=== PATIENT | female | born 1990 | race Caucasian/White ===

== ENCOUNTER → 2018-04-16 | Outpatient (CLI) | payer BC | LOC: LAB 10:24 | PROVIDERS: ATTEND Obstetrics & Gynecology | DX: N97.0 Female infertility associated with anovulation (principal) | CPT/HCPCS: 36415; 84144 ==

== ENCOUNTER 2018-08-26 10:18 | Outpatient (CLI) | payer BC ==
[~2018-08-26] VITALS: Ht 152.4 cm; Wt 72.1 kg
[2018-08-26 10:35] VITALS: BP 127/82
[2018-08-26 10:46] LABS: BILIRUBIN,URINE NEGATIVE (NEGATIVE); CLARITY,URINE CLEAR; COLOR,URINE YELLOW; GLUCOSE, URINE (UA) NEGATIVE (NEGATIVE); KETONES,URINE NEGATIVE (NEGATIVE); LEUKOCYTE ESTERASE ,URINE NEGATIVE (NEGATIVE); NITRITE,URINE NEGATIVE (NEGATIVE); PH,URINE 7 (5-9); PROTEIN,URINE NEGATIVE (NEGATIVE); UROBILINOGEN,URINE NORMAL (NORMAL)
[2018-08-26 10:58] LABS: BACTERIA,URINE NEGATIVE /HPF; SQUAMOUS EPITHELIAL CELL,UR 0-2 /HPF
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
[2018-08-26] MEDS ORDERED: PNV11TAB5 PO (13:44)
[2018-08-26] MEDS ORDERED: DEXL30CA2 PO (13:46)
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
== END 2018-08-26 13:52 | disposition home or self-care (01) ==
LOC: WSo 10:18 → LDRP 10:19 → WSo 13:52
PROVIDERS: ATTEND Obstetrics & Gynecology
DX: Z04.1 Encounter for examination and observation following transport accident (principal); Z3A.18 18 weeks gestation of pregnancy
CPT/HCPCS: 76815; 81000; 87088; 99213

== ENCOUNTER → 2018-09-13 | Outpatient (CLI) | payer BC ==
[~2018-09-13] MED LIST: DEXL30CA2 PO; PNV11TAB5 PO
--- NOTE | 2018-09-13 11:17 | Diagnostic Imaging Report ---
INDICATION: anatomical assessment. TECHNIQUE: Multiple Real-time grayscale images were obtained over the gravid uterus. COMPARISON: 08/26/2018. FINDINGS: There is the presence of a single viable intrauterine currently in transverse orientation. There is a normal amount of amniotic fluid. The placenta is posterior without evidence for previa. The visualized anatomical structures including the kidneys, bladder, stomach, intracranial structures, 4 chamber heart, three-vessel cord, and insertion site as well as spine appear unremarkable. The cervical length is approximately 4.2 cm. The maternal adnexa are not imaged. Biometrical measurements are as follows: Biparietal 4.36 cm, age 19 weeks 2 days. Head circumference 16.49 cm, age 19 weeks 2 days. Abdominal circumference 13.98 cm, age 19 weeks 3 days. Femur length 2.98 cm, age 19 weeks 2 days. Sonographic estimate age: 19 weeks 3 days. Sonographic estimated date of delivery: 02/04/19. Estimated Weight: 284 gm (+/- 41 gm). LMP percentile: 29%. heart rate: 138 beats per minute. number: 1 of 1. IMPRESSION: Single viable intrauterine currently in transverse orientation. The sonographic estimated age is 19 weeks 3 days for an estimated date of delivery of 02/04/2019. This corresponds to previous ultrasound dating. No abnormalities are noted at this time. Dictated by: Dictated on workstation # [id number]
== END ==
LOC: RAD 09:44
PROVIDERS: ATTEND Obstetrics & Gynecology
DX: Z36.89 Encounter for other specified antenatal screening (principal); Z3A.19 19 weeks gestation of pregnancy
CPT/HCPCS: 76805

== ENCOUNTER → 2019-01-13 | Outpatient (CLI) | payer BC ==
--- NOTE | 2019-01-13 15:48 | Diagnostic Imaging Report ---
INDICATION: Large for gestational age. TECHNIQUE: Multiple real-time grayscale images were obtained over the gravid uterus. COMPARISON: 09/13/2018. FINDINGS: There is a single live fetus in cephalic presentation. heart rate was recorded at 133 beats per minute. The placenta is posterior and to the right. Amniotic fluid index is 12.4 cm. Biometrical measurements are as follows: Biparietal 9.59 cm, age 39 weeks 2 days. Head circumference 32.35 cm, age 36 weeks 5 days. Abdominal circumference 34.81 cm, age 38 weeks 5 days. Femur length 7.81 cm, age 40 weeks 0 days. Sonographic estimate age: 38 weeks 5 days. Sonographic estimated date of delivery: 01/22/2019. Estimated Weight: 3596 gm (+/- 525 gm). LMP percentile: 93%. heart rate: 133 beats per minute. number: 1 of 1. IMPRESSION: Single live IUP measuring approximately 38 to 39 weeks (+/-2 weeks) gestational age, which shows normal interval growth when compared with prior examination from 09/13/2018. Dictated by: Dictated on workstation # [id number]
== END ==
LOC: RAD 13:37
PROVIDERS: ATTEND Obstetrics & Gynecology
DX: O36.60X0 Maternal care for excessive fetal growth, unspecified trimester, not applicable or unspecified (principal); O34.42 Maternal care for other abnormalities of cervix, second trimester; Z3A.38 38 weeks gestation of pregnancy
CPT/HCPCS: 76816

== ENCOUNTER 2019-01-30 19:55 | Inpatient (IN) | payer BC ==
[~2019-01-30] VITALS: Ht 152.4 cm; Wt 81.2 kg
[2019-01-30] MEDS: D5 LR IV SOLUTION 1,000 ML IV SCH (20:15)
[2019-01-30 20:30] VITALS: BP 132/80
[2019-01-30] MEDS ORDERED: MISOPROSTOL 100 MCG (CYTOTEC) TAB PO ONE (21:00)
[2019-01-30] MEDS ORDERED: NS IV 1000 ML 1,000 ML IV SCH (21:00)
[2019-01-30] MEDS ORDERED: MINERAL OIL CONCENTRATE 99.9% 15 ML UDC TOP PRN (21:00)
[2019-01-30] MEDS ORDERED: ZOLPIDEM 5 MG (AMBIEN) TAB PO ONE (21:00)
[2019-01-30 21:04] LABS: BASOPHILS % (AUTO) 0 % (0-10); EOSINOPHILS % (AUTO) 0 % (0-10); HEMATOCRIT 39 % (35-52); HEMOGLOBIN 13.1 G/DL (11.5-16.0); LYMPHOCYTES # (AUTO) 2.7 X 10^3 (1.0-4.0); LYMPHOCYTES % (AUTO) 21 % (12-44); MEAN CORPUSCULAR HEMOGLOBIN 28 PG (25-34); MEAN CORPUSCULAR HGB CONC 34 G/DL (32-36); MEAN CORPUSCULAR VOLUME 83 FL (80-99); MEAN PLATELET VOLUME 11.8 FL (7.4-10.4); MONOCYTES % (AUTO) 8 % (0-12); NEUTROPHILS % (AUTO) 70 % (42-75); PLATELET COUNT 270 10^3/uL (130-400); RED CELL DISTRIBUTION WIDTH 17.5 % (10.0-14.5); WHITE BLOOD COUNT 12.8 10^3/uL (4.3-11.0)
[2019-01-30 21:15] LABS: ALANINE AMINOTRANSFERASE 17 U/L (0-55); ALBUMIN 3.5 GM/DL (3.2-4.5); ALKALINE PHOSPHATASE 158 U/L (40-136); BILIRUBIN,TOTAL 0.3 MG/DL (0.1-1.0); BUN/CREATININE RATIO 12; CALCIUM 9.6 MG/DL (8.5-10.1); CARBON DIOXIDE 16 MMOL/L (21-32); CHLORIDE 108 MMOL/L (98-107); CREATININE SERUM 0.69 MG/DL (0.60-1.30); GFR ESTIMATED > 60; GLUCOSE 73 MG/DL (70-105); POTASSIUM 4.2 MMOL/L (3.6-5.0); SODIUM 137 MMOL/L (135-145); TOTAL PROTEIN 6.6 GM/DL (6.4-8.2); URIC ACID 5.3 MG/DL (2.6-7.2)
[2019-01-30] MEDS ORDERED: MISOPROSTOL 100 MCG (CYTOTEC) TAB ONE (21:17)
[2019-01-30 21:30] VITALS: BP 133/74
[2019-01-30 21:35] LABS: BILIRUBIN,URINE NEGATIVE (NEGATIVE); CLARITY,URINE SLIGHTLY CLOUDY; COLOR,URINE YELLOW; GLUCOSE, URINE (UA) NEGATIVE (NEGATIVE); KETONES,URINE 2+ (NEGATIVE); LEUKOCYTE ESTERASE ,URINE NEGATIVE (NEGATIVE); NITRITE,URINE NEGATIVE (NEGATIVE); PH,URINE 6 (5-9); PROTEIN,URINE 1+ (NEGATIVE); UROBILINOGEN,URINE NORMAL (NORMAL)
[2019-01-30 21:45] LABS: BACTERIA,URINE MODERATE /HPF
[2019-01-30 23:00] VITALS: BP 131/60
[2019-01-31] VITALS (33 sets, daily range): BP systolic 108–173; BP diastolic 56–125
[2019-01-31] MEDS: CATHETER FLUSH 10 ML SYR IV SCH ×2 (00:44→06:26)
[2019-01-31] MEDS: MISOPROSTOL 100 MCG (CYTOTEC) TAB PO SCH ×3 (01:26→09:55)
[2019-01-31] MEDS ORDERED: morphine INJ 10 MG/ML 1ML (SYR OR VIAL) ONE (03:58)
[2019-01-31] MEDS ORDERED: AMPICILLIN FOR IV USE 2,000 MG in WATER (STERILE) FOR INJECTION 14.8 ML IV SCH (03:58)
[2019-01-31] MEDS ORDERED: morphine INJ 4 MG/ML 1 ML (VIAL/SYRINGE) IVP PRN (04:00)
[2019-01-31] MEDS ORDERED: PROMETHAZINE INJ 25 MG/ML (PHENERGAN) AMP IVP ONE (04:00)
[2019-01-31] MEDS ORDERED: AMPICILLIN FOR IV USE 2,000 MG VIAL ONE (04:04)
[2019-01-31] MEDS ORDERED: WATER (STERILE) FOR INJECTION 10 ML ONE ×2 (04:04→04:09)
[2019-01-31] MEDS: D5 LR IV SOLUTION 1,000 ML IV SCH ×2 (04:16→12:09)
[2019-01-31] MEDS: AMPICILLIN FOR IV USE 1,000 MG in WATER (STERILE) FOR INJECTION 7.4 ML IV SCH ×2 (09:03→13:49)
[2019-01-31] MEDS ORDERED: SUFENTA 0.6MCG/ML BUPIVA 0.125 100 ML ONE (11:18)
--- NOTE | 2019-01-31 11:23 | NUR ---
1123 Declan HILLMAN CRNA here for epidural placement. Procedure explained, consent reviewed and signed by anesthesia. Questions answered to patient's satisfaction. Time out taken to verify correct patient/procedure. 1128 Patient up to side of bed, assisted into sitting position. 1131 Betadine prep done x3 and sterile drape applied. 1135 Local done, see anesthesia record. 1138 Test dose given #1, see anesthesia record for drug and dosage. 1139 Test dose #2 given, see anesthesia record for drug and dosage. Epidural catheter secured in place. Epidural placement complete. 1145 Assisted back into bed, monitors adjusted. Epidural dosed, see anesthesia record. Epidural of Sufenta/Bupvicaine @10cc/hr stated per pump. Patient tolerated procedure well.
[2019-01-31] MEDS ORDERED: LACTATED RINGERS 1,000 ML IV SCH (11:53)
[2019-01-31] MEDS ORDERED: NALOXONE 0.4 MG/ML 1 ML (NARCAN) VIAL IV PRN ×2 (12:00)
[2019-01-31] MEDS ORDERED: diphenhydrAMINE 50 MG/ML INJ (BENADRYL) IV PRN (12:00)
[2019-01-31] MEDS ORDERED: EPIDURAL (SUFENTA 0.6MCG/ML BUPIVA 0.125%) 100 ML BAG EPI SCH (12:00)
[2019-01-31] MEDS ORDERED: METOCLOPRAMIDE INJ 10 MG/2 ML (REGLAN) IV PRN (12:00)
[2019-01-31] MEDS ORDERED: ONDANSETRON 4 MG/2 ML (SDV) Z0FRAN IV PRN (12:00)
[2019-01-31] MEDS ORDERED: D5 LR IV SOLUTION 1,000 ML IV ONE (12:05)
[2019-01-31] MEDS ORDERED: LACTATED RINGERS 1,000 ML IV ONE (12:05)
[2019-01-31] MEDS ORDERED: OXYTOCIN/NORMAL SALINE 500 ML IV SCH ×2 (12:54→16:10)
[2019-01-31] MEDS ORDERED: CITRIC ACID/SOB CIT (BICITRA) 30 ML UDC ONE (15:01)
[2019-01-31] MEDS ORDERED: ceFAZolin 2 GM IV Premixed 50 ML ONE (15:02)
[2019-01-31] MEDS ORDERED: FAMOTIDINE 20MG/2ML IV (PEPCID) ONE (15:02)
[2019-01-31] MEDS ORDERED: fentaNYL INJECTION 100 MCG/2 ML AMP ONE (15:11)
[2019-01-31] MEDS ORDERED: LACTATED RINGERS 1,000 ML IV PRN (15:11)
[2019-01-31] MEDS ORDERED: LIDOCAINE PF 2% 5 ML (XYLOCAINE) VIAL ONE (15:11)
[2019-01-31] MEDS ORDERED: CATHETER FLUSH 10 ML SYR IV PRN (15:15)
[2019-01-31] MEDS ORDERED: CITRIC ACID/SOB CIT (BICITRA) 30 ML UDC PO ONE ×2 (15:15)
[2019-01-31] MEDS ORDERED: FAMOTIDINE 20MG/2ML IV (PEPCID) IV ONE ×2 (15:15)
[2019-01-31] MEDS ORDERED: AZITHROMYCIN INJECTION 500 MG in NS (IVPB) 250 ML IV ONE (15:15)
[2019-01-31] MEDS ORDERED: ceFAZolin 2 GM IV Premixed 50 ML IV ONE (15:15)
[2019-01-31] MEDS ORDERED: METOCLOPRAMIDE INJ 10 MG/2 ML (REGLAN) IV ONE ×2 (15:15)
--- NOTE | 2019-01-31 15:21 | NUR ---
REFER TO LABOR FLOW SHEET.
[2019-01-31] MEDS ORDERED: KETOROLAC 30 MG/ML VIAL ONE (15:50)
[2019-01-31] MEDS ORDERED: BUPIVACAINE 0.5% 30 ML (SENSORCAINE) VIAL ONE (15:50)
[2019-01-31] MEDS: KETOROLAC 30 MG/ML VIAL IV SCH ×2 (16:08→22:35)
[2019-01-31] MEDS ORDERED: OXYTOCIN/NORMAL SALINE 500 ML IV ONE ×3 (16:10→16:30)
[2019-01-31] MEDS ORDERED: MEASLES,MUMPS,RUBELLA 1 EA INJ SC SCH (16:15)
[2019-01-31] MEDS ORDERED: TETANUS,DIPTH,PERTUSS P/F (BOOSTRIX) 0.5 ML VIAL IM SCH (16:15)
--- NOTE | 2019-01-31 16:22 | Cesarean Section Operative ---
Procedure Procedure Note Pre-operative Diagnosis: Angie Ferreira is a 28 /Para 1/0 , Gestational Age 39 4/7 weeks, GBS +, Preeclampsia, mild; failure to progress, intolerance Post-operative Diagnosis: same nuchal cord x 2. Procedure: primary low transverse section Physician: NATE FALL [employer] Supervisor: Judy Butt, MS III Estimated blood loss: 600 mL Disposition: stable Findings: Viable male infant, Apgars pending, weight 8#14 oz, intact placenta, 3vc, normal appearing uterus, tubes, and ovaries. Indications:Angie Ferreira is a 28 /Para 1/0 ,Gestational Age 39 4/ 7 weeks, GBS +, preeclampsia, mild; failure to progress, intolerance to labor Procedure Details: The patient was seen in pre-op and the procedure was discussed with the patient in full, including the risks, benefits, and alternatives. All questions were answered. The patient was taken to the operating room and a time out was performed, verifying patient and procedure. After spinal anesthesia was placed by our anesthesia colleagues, the patient was placed in the dorsal supine with leftward tilt for uterine displacement.~ Her abdomen was then prepped and draped in the typical sterile fashion. A Pfannenstiel skin incision was made using a scalpel and carried down through the underlying fascia. The fascia was incised in the midline and tented up using Humble clamps. On both the inferior and superior fascia side the rectus muscle was dissected off bluntly and sharply using Adorno scissors. The peritoneum was identified and entered bluntly in the midline. This was then stretched laterally using manual strength. After entering the abdominal cavity and confirming lack of intraperitoneal adhesions, a large Kem retractor was placed and the lower uterine segment was visualized. A scalpel was utilized to make a low transverse uterine incision. Amniotomy was performed with an Allis clamp with return of clear fluid. The infant's head was grasped and brought to the level of the incision. Fundal pressure was applied and infant was delivered with assistance of the Silastic suction without difficulty. Mouth and nares were suctioned with bulb suction. After the umbilical cord was clamped and cut, the infant was handed off to the pediatric staff. A sample of cord blood was then obtained. The placenta was delivered intact via uterine massage. The uterus was cleared of all clots and debris. The uterine incision was closed using 0 Vicryl in a running locked fashion. A second imbricated layer was placed using 0 Vicryl in a running fashion as well. The abdominal gutters were cleared of all clots and debris. A final check of the uterine incision showed it to be hemostatic. The peritoneum was closed using 3-0 Vicryl in a running fashion. The fascia was closed with 0 Vicryl in a running fashion. The subcutaneous space was hemostatic , and irrigated. The subcutaneous space was closed with 3-0 Vicryl in several single interrupted stitches. The skin was then closed using 4-0 Monocryl in a running subcuticular fashion. The skin edges were reapproximated together and were hemostatic. A pressure dressing was applied. All sponge, lap and needle counts were correct at the end of the procedure per nursing. Vitals - Labs Vital Signs - I&O Vital Signs Date Time Temp Pulse Resp B/P (MAP) Pulse Ox O2 Delivery O2 Flow Rate FiO2 01/31/19 07:23 98.0 90 18 140/75 (96) Room Air 01/31/19 05:30 98.1 84 18 139/78 (98) 01/31/19 04:00 98.4 78 18 137/67 (90) 01/31/19 01:30 98.1 96 134/96 (109) 01/30/19 23:00 85 131/60 (83) 01/30/19 21:30 80 18 133/74 (93) 01/30/19 20:30 98.8 92 18 132/80 (97) I & O 01/31/19 07:00 Intake Total 1994.8 ml Balance 1994.8 ml Labs Laboratory Tests 01/30/19 20:15: White Blood Count 12.8H, Red Blood Count 4.66, Hemoglobin 13.1, Hematocrit 39, Mean Corpuscular Volume 83, Mean Corpuscular Hemoglobin 28, Mean Corpuscular Hemoglobin Concent 34, Red Cell Distribution Width 17.5H, Platelet Count 270, Mean Platelet Volume 11.8H, Neutrophils (%) (Auto) 70, Lymphocytes (%) (Auto) 21 , Monocytes (%) (Auto) 8, Eosinophils (%) (Auto) 0, Basophils (%) (Auto) 0, Neutrophils # (Auto) 9.0H, Lymphocytes # (Auto) 2.7, Monocytes # (Auto) 1.0, Eosinophils # (Auto) 0.0, Basophils # (Auto) 0.0, Sodium Level 137, Potassium Level 4.2, Chloride Level 108H, Carbon Dioxide Level 16L, Anion Gap 13, Blood Urea Nitrogen 8, Creatinine 0.69, Estimat Glomerular Filtration Rate > 60, BUN/ Creatinine Ratio 12, Glucose Level 73, Uric Acid 5.3, Calcium Level 9.6, Corrected Calcium 10.0, Total Bilirubin 0.3, Aspartate Amino Transf (AST/SGOT) 24, Alanine Aminotransferase (ALT/SGPT) 17, Alkaline Phosphatase 158H, Lactate Dehydrogenase 256H, Total Protein 6.6, Albumin 3.5 01/30/19 20:25: Urine Color YELLOW, Urine Clarity SLIGHTLY CLOUDY, Urine pH 6, Urine Specific [place] 1.025H, Urine Protein 1+H, Urine Glucose (UA) NEGATIVE, Urine Ketones 2+ H, Urine Nitrite NEGATIVE, Urine Bilirubin NEGATIVE, Urine Urobilinogen NORMAL, Urine Leukocyte Esterase NEGATIVE, Urine RBC (Auto) NEGATIVE, Urine RBC NONE, Urine WBC 2-5, Urine Squamous Epithelial Cells 10-25H, Urine Crystals NONE, Urine Bacteria MODERATEH, Urine Casts NONE, Urine Mucus SMALLH, Urine Culture Indicated NO NATE FALL DO Jan 31, 2019 16:21
--- NOTE | 2019-01-31 17:15 | NUR ---
DAVID DIALLO presented to unit via BED from [facility], accompanied by Philly MESSINA, RN AND [facility] [place] RN AFTER HAVING A PRIMARY SECTION. REPORT RECEIVED.
--- NOTE | 2019-01-31 17:25 | NUR ---
PT . [employer] REPORTS LAST VS BEING WNL. IV TUBING CONVERTED TO PUMP TUBING, PITOCIN INFUSING @ 125 ML/HR. NO NEEDS VOICED. CALL LIGHT WITHIN REACH.
--- NOTE | 2019-01-31 17:50 | NUR ---
PT IN THE MIDDLE OF . FFU/0. SCANT RUBRA LOCHIA NOTED, NO CLOTS. ASSISTANCE PROVIDED IN LATCHING INFANT ONTO THE RIGHT BREAST. NO FURTHER NEEDS VOICED. S/O AT THE BEDSIDE.
[2019-01-31] MEDS: DOCUSATE SODIUM 100 MG (COLACE) CAP PO SCH (21:10)
[2019-01-31] MEDS ORDERED: CATHETER FLUSH 10 ML SYR IV SCH (22:00)
[2019-01-31] MEDS: ACETAMINOPHEN 500 MG TAB (TYLENOL) PO SCH (22:36)
[2019-02-01] VITALS: BP 143/70
[2019-02-01 04:30] VITALS: BP 132/79
[2019-02-01] MEDS: KETOROLAC 30 MG/ML VIAL IV SCH (04:30)
[2019-02-01] MEDS ORDERED: MILK OF MAGNESIA 400 MG/5 ML 30 ML UDC PO PRN (05:00)
[2019-02-01] MEDS: ACETAMINOPHEN 500 MG TAB (TYLENOL) PO SCH ×3 (06:27→22:06)
[2019-02-01 07:04] LABS: BASOPHILS % (AUTO) 0 % (0-10); EOSINOPHILS % (AUTO) 0 % (0-10); HEMATOCRIT 32 % (35-52); HEMOGLOBIN 10.7 G/DL (11.5-16.0); LYMPHOCYTES # (AUTO) 1.7 X 10^3 (1.0-4.0); LYMPHOCYTES % (AUTO) 13 % (12-44); MEAN CORPUSCULAR HEMOGLOBIN 28 PG (25-34); MEAN CORPUSCULAR HGB CONC 33 G/DL (32-36); MEAN CORPUSCULAR VOLUME 84 FL (80-99); MEAN PLATELET VOLUME 11.2 FL (7.4-10.4); MONOCYTES % (AUTO) 8 % (0-12); NEUTROPHILS # (AUTO) 10.5 X 10^3 (1.8-7.8); NEUTROPHILS % (AUTO) 79 % (42-75); PLATELET COUNT 198 10^3/uL (130-400); RED CELL DISTRIBUTION WIDTH 17.4 % (10.0-14.5); WHITE BLOOD COUNT 13.3 10^3/uL (4.3-11.0)
--- NOTE | 2019-02-01 08:21 | Anesthesia-Regional Post-Op ---
Regional Patient Condition Mental Status: Alert, Oriented x3 Circulation: Same as Pre-Op Headache: Absent Sensation: Full Recovery Motor Block: Absent Post Op Complications Complications None Follow Up Care/Instructions Patient Instructions None needed. Anesthesia/Patient Condition Patient is doing well, no complaints, stable vital signs, no apparent adverse anesthesia problems. No complications reported per nursing. D/C home per [facility] Criteria: ANIL Mcneal CRNA Feb 01, 2019 08:21
--- NOTE | 2019-02-01 08:50 | NUR ---
IV DC'D; SEE INTERVENTION. PT PREPPING TO TAKE A SHOWER.
[2019-02-01 09:51] VITALS: BP 129/83
--- NOTE | 2019-02-01 09:55 | NUR ---
PT UP IN THE ROOM. VS OBTAINED. INITIAL SHIFT ASSESSMENT COMPLETED; SEE INTERVENTION FOR FURTHER.
[2019-02-01] MEDS ORDERED: IBUPROFEN 600 MG (MOTRIN) TAB PO ONE (10:15)
[2019-02-01] MEDS: IBUPROFEN 600 MG (MOTRIN) TAB PO SCH ×3 (10:24→22:06)
[2019-02-01] MEDS: DOCUSATE SODIUM 100 MG (COLACE) CAP PO SCH ×2 (10:24→22:06)
--- NOTE | 2019-02-01 10:24 | NUR ---
VISITORS AT THE BEDSIDE. MEDS GIVEN PO; SEE EMAR FOR FURTHER. PT DENIES ANY NEEDS AT THIS TIME. CALL LIGHT WITHIN REACH.
--- NOTE | 2019-02-01 11:40 | NUR ---
CALLED PER PT'S REQUEST.
[2019-02-01 12:43] VITALS: BP 139/83
--- NOTE | 2019-02-01 12:43 | NUR ---
PT UP IN THE ROOM PRIOR TO SITTING ON THE SIDE OF THE BED. VS OBTAINED. MORE PADS PROVIDED. NO FURTHER NEEDS VOICED.
--- NOTE | 2019-02-01 13:16 | Postpartum Progress Note ---
Post Op Post-operative Day #1 s/p PLTCS due to FTP, intolerance to labor Subjective: Patient is without complaints. Ambulating, voiding after yeung removed. Tolerating a regular diet without nausea or vomiting. Normal lochia. Pain is well controlled with oral pain medications. Passing flatus. breast feeding. Objective: Laboratory Tests Test 02/01/19 06:43 Range/Units White Blood Count 13.3 H 4.3-11.0 10^3/uL Red Blood Count 3.84 L 4.35-5.85 10^6/uL Hemoglobin 10.7 L 11.5-16.0 G/DL Hematocrit 32 L 35-52 % Mean Corpuscular Volume 84 80-99 FL Mean Corpuscular Hemoglobin 28 25-34 PG Mean Corpuscular Hemoglobin Concent 33 32-36 G/DL Red Cell Distribution Width 17.4 H 10.0-14.5 % Platelet Count 198 130-400 10^3/uL Mean Platelet Volume 11.2 H 7.4-10.4 FL Neutrophils (%) (Auto) 79 H 42-75 % Lymphocytes (%) (Auto) 13 12-44 % Monocytes (%) (Auto) 8 0-12 % Eosinophils (%) (Auto) 0 0-10 % Basophils (%) (Auto) 0 0-10 % Neutrophils # (Auto) 10.5 H 1.8-7.8 X 10^3 Lymphocytes # (Auto) 1.7 1.0-4.0 X 10^3 Monocytes # (Auto) 1.0 0.0-1.0 X 10^3 Eosinophils # (Auto) 0.0 0.0-0.3 10^3/uL Basophils # (Auto) 0.0 0.0-0.1 10^3/uL 02/01/19 02/01/19 04:30 09:51 Temp 98.7 98.1 Pulse 94 98 Resp 18 18 B/P (MAP) 132/79 (96) 129/83 (98) Pulse Ox 98 O2 Delivery Room Air Room Air 02/01/19 00:00 Intake Total 550 ml Output Total 1100 ml Balance -550 ml Physical Exam: General - Alert and oriented, no apparent distress Abdomen - Soft, appropriately tender to palpation, non-distended, fundus firm at umbilicus Incision - clean, dry and intact; no erythema or induration, no drainage Extremities - no edema, negative Dania's bilaterally [] Assessment: [] post-operative day # [], status post []. Recovering well, hemodynamically stable Acute blood loss anemia [] Plan: Routine post-operative care. Encourage breast feeding. Encourage ambulation. VTE prophylaxis: SCDs. Ferrous sulfate supplementation. Plan for discharge [] Vitals - Labs Vital Signs - I&O Vital Signs Date Time Temp Pulse Resp B/P (MAP) Pulse Ox O2 Delivery O2 Flow Rate FiO2 02/01/19 09:51 98.1 98 18 129/83 (98) 98 Room Air 02/01/19 04:30 98.7 94 18 132/79 (96) Room Air 02/01/19 00:00 97.4 101 18 143/70 (94) Room Air 01/31/19 20:00 99.2 98 20 128/74 (92) 98 Room Air 01/31/19 19:18 Room Air 01/31/19 17:15 99.4 20 99 Room Air 01/31/19 17:10 20 98 Room Air 01/31/19 17:00 16 98 Room Air 01/31/19 16:50 20 98 Room Air 01/31/19 16:40 20 99 Room Air 01/31/19 16:30 20 97 Room Air 01/31/19 16:21 99.6 20 98 Room Air 01/31/19 15:30 108 18 173/125 (141) 100 Non Rebreather 10.00 01/31/19 15:00 78 18 122/61 (81) 100 Non Rebreather 10.00 01/31/19 14:45 98.4 83 18 115/74 (88) 100 Non Rebreather 10.00 01/31/19 14:30 98 18 118/59 (78) 100 Room Air 01/31/19 14:15 95 18 133/60 (84) 99 Room Air 01/31/19 14:00 98.5 97 18 110/71 (84) 100 Room Air 01/31/19 13:45 113 18 115/74 (88) 99 Room Air 01/31/19 13:30 110 18 144/72 (96) 98 Room Air I & O 02/01/19 07:00 Intake Total 2350 ml Output Total 3750 ml Balance -1400 ml Labs Laboratory Tests 02/01/19 06:43: White Blood Count 13.3H, Red Blood Count 3.84L, Hemoglobin 10.7L, Hematocrit 32L , Mean Corpuscular Volume 84, Mean Corpuscular Hemoglobin 28, Mean Corpuscular Hemoglobin Concent 33, Red Cell Distribution Width 17.4H, Platelet Count 198, Mean Platelet Volume 11.2H, Neutrophils (%) (Auto) 79H, Lymphocytes (%) (Auto) 13, Monocytes (%) (Auto) 8, Eosinophils (%) (Auto) 0, Basophils (%) (Auto) 0, Neutrophils # (Auto) 10.5H, Lymphocytes # (Auto) 1.7, Monocytes # (Auto) 1.0, Eosinophils # (Auto) 0.0, Basophils # (Auto) 0.0 NATE FALL DO Feb 01, 2019 13:16
--- NOTE | 2019-02-01 14:53 | NUR ---
PT IN BED, LIGHTS OUT, PREPPING TO TAKE A NAP. S/O AT THE BEDSIDE. ROUTINE TYLENOL GIVEN PO; SEE EMAR FOR FURTHER. NO NEEDS VOICED.
[2019-02-01 16:50] VITALS: BP 127/82
--- NOTE | 2019-02-01 16:50 | NUR ---
PT IN BED, PT'S MOTHER AT THE BEDSIDE. ROUTINE MOTRIN GIVEN PO; SEE EMAR FOR FURTHER. VS OBTAINED. MORE BABY WIPES PROVIDED PER REQUEST. NO FURTHER NEEDS VOICED.
--- NOTE | 2019-02-01 17:40 | NUR ---
DR. FALL TO PT'S BEDSIDE.
--- NOTE | 2019-02-01 18:58 | NUR ---
PT SITTING UP IN BED, NO NEEDS VOICED. STORK TABLE REMOVED.
[2019-02-01 22:06] VITALS: BP 124/79
[2019-02-02 03:25] VITALS: BP 127/78
[2019-02-02] MEDS: IBUPROFEN 600 MG (MOTRIN) TAB PO SCH ×2 (03:25→10:30)
[2019-02-02] MEDS: ACETAMINOPHEN 500 MG TAB (TYLENOL) PO SCH (06:16)
[2019-02-02 07:50] VITALS: BP 120/78
--- NOTE | 2019-02-02 08:00 | NUR ---
PT SITTING UP AT THE SIDE OF THE BED, SHOWER PREPPED. S/O AT THE BEDSIDE. NO NEEDS VOICED. WILL RETURN FOR ASSESSMENT AT A LATER TIME.
[2019-02-02] MEDS ORDERED: IBUP-844 PO (09:53)
[2019-02-02] MEDS ORDERED: DOCU100C37 PO (09:53)
[2019-02-02] MEDS ORDERED: OXC5T PO (09:53)
[2019-02-02] MEDS ORDERED: ACET-77 PO (09:53)
--- NOTE | 2019-02-02 10:26 | Discharge Inst-Women's Service ---
Discharge Inst-Women's Serv Depart Medication/Instructions New, Converted or Re-Newed RX: RX on Chart Final Diagnosis preeclampsia failure to progress Macrosomia/LGA Proce - PLTCS Consults/Follow Up Additional Follow Up: Yes (1 week for incision check and BP check with Brandon, 6 week pp exam) Activity Activity: Activity as Tolerated Driving Instructions: No Driving for 1 Week NO SMOKING: NO SMOKING Nothing Inside Vagina: No Douching, No [place], No Tampons Diet Discharge Diet: No Restrictions Symptoms to Report to : Swelling Increased, Eyesight Changes, Pain Increased , Fever Over 101 Degrees F, Vaginal Bleeding Increase, Cramps in Feet or Legs, Vaginal Discharge Foul For Any Problems or Questions: Contact Your Physician Skin/Wound Care Infection Signs and Symptoms: Increased Redness, Foul Odor of Wound, Increased Drainage, Skin Itchy or Has a Rash, Increased Swelling, Temperature Above 101 F Operative Area Clean and Dry: Keep Incision Clean/Dry Stitches/Alicia/Dermabond: Dermabond Bathing Instructions: NATE Dozier DO Feb 02, 2019 10:26
--- NOTE | 2019-02-02 10:27 | Postpartum Progress Note ---
Post Op Post-operative Day #[] Subjective: Patient is without complaints. Ambulating, voiding after yeung removed. Tolerating a regular diet without nausea or vomiting. Normal lochia. Pain is well controlled with oral pain medications. Passing flatus. [] feeding. [] Objective: [] Physical Exam: General - Alert and oriented, no apparent distress Abdomen - Soft, appropriately tender to palpation, non-distended, fundus firm at umbilicus Incision - clean, dry and intact; no erythema or induration, no drainage Extremities - no edema, negative Dania's bilaterally [] Assessment: [] post-operative day # [], status post []. Recovering well, hemodynamically stable Acute blood loss anemia [] Plan: Routine post-operative care. Encourage breast feeding. Encourage ambulation. VTE prophylaxis: SCDs. Ferrous sulfate supplementation. Plan for discharge [] Vitals - Labs Vital Signs - I&O Vital Signs Date Time Temp Pulse Resp B/P (MAP) Pulse Ox O2 Delivery O2 Flow Rate FiO2 02/02/19 03:25 98.4 78 18 127/78 (94) 99 Room Air 02/01/19 22:06 97.7 72 18 124/79 (94) 100 Room Air 02/01/19 16:50 98.1 80 18 127/82 (97) 100 Room Air 02/01/19 12:43 97.8 72 18 139/83 (101) 100 Room Air I & O 02/02/19 07:00 Intake Total 400 ml Output Total 800 ml Balance -400 ml NATE FALL DO Feb 02, 2019 10:27
--- NOTE | 2019-02-02 10:28 | Discharge Summary ---
Diagnosis/Chief Complaint Date of Admission Jan 30, 2019 at 19:55 Date of Discharge Discharge Date: Feb 02, 2019 Discharge Summary Hospital Course Labs Laboratory Tests 01/30/19 20:15: White Blood Count 12.8H, Red Cell Distribution Width 17.5H, Mean Platelet Volume 11.8H, Neutrophils # (Auto) 9.0H, Chloride Level 108H, Carbon Dioxide Level 16L, Alkaline Phosphatase 158H, Lactate Dehydrogenase 256H 01/30/19 20:25: Urine Specific [place] 1.025H, Urine Protein 1+H, Urine Ketones 2+H, Urine Squamous Epithelial Cells 10-25H, Urine Bacteria MODERATEH, Urine Mucus SMALLH 02/01/19 06:43: White Blood Count 13.3H, Red Cell Distribution Width 17.4H, Mean Platelet Volume 11.2H, Neutrophils # (Auto) 10.5H, Red Blood Count 3.84L, Hemoglobin 10.7L, Hematocrit 32L, Neutrophils (%) (Auto) 79H Procedures section epidural Discharge Physical Examination Allergies: Coded Allergies: No Known Drug Allergies (Unverified , 08/26/18) Vitals & I&Os Vital Signs Date Time Temp Pulse Resp B/P (MAP) Pulse Ox O2 Delivery O2 Flow Rate FiO2 02/02/19 03:25 98.4 78 18 127/78 (94) 99 Room Air 01/31/19 15:30 10.00 VS - Last 72 Hours, by Label 01/30/19 01/30/19 01/30/19 01/31/19 20:30 21:30 23:00 01:30 Temp 98.8 98.1 Pulse 92 80 85 96 Resp 18 18 B/P (MAP) 132/80 (97) 133/74 (93) 131/60 (83) 134/96 (109) 01/31/19 01/31/19 01/31/19 01/31/19 04:00 05:30 07:23 10:00 Temp 98.4 98.1 98.0 98.5 Pulse 78 84 90 Resp 18 18 18 B/P (MAP) 137/67 (90) 139/78 (98) 140/75 (96) O2 Delivery Room Air 01/31/19 01/31/19 01/31/19 01/31/19 11:31 11:33 11:36 11:40 Pulse 94 92 71 88 Resp 18 18 18 18 B/P (MAP) 142/88 (106) 149/97 (114) 135/84 (101) 138/80 (99) Pulse Ox 100 99 99 O2 Delivery Room Air Room Air Room Air Room Air 01/31/19 01/31/19 01/31/19 01/31/19 11:42 11:45 11:49 11:51 Pulse 98 90 93 96 Resp 18 18 18 18 B/P (MAP) 136/85 (102) 126/74 (91) 134/62 (86) 127/62 (83) Pulse Ox 99 98 O2 Delivery Room Air Room Air Room Air Room Air 01/31/19 01/31/19 01/31/19 01/31/19 11:54 11:57 12:00 12:03 Temp 97.9 Pulse 96 109 97 108 Resp 18 18 18 18 B/P (MAP) 113/57 (75) 129/57 (81) 113/57 (75) 110/62 (78) Pulse Ox 98 97 99 O2 Delivery Room Air Room Air Room Air Room Air 01/31/19 01/31/19 01/31/19 01/31/19 12:06 12:13 12:17 12:22 Temp 97.8 Pulse 93 105 80 89 Resp 18 18 18 18 B/P (MAP) 108/56 (73) 114/58 (76) 115/66 (82) 114/66 (82) Pulse Ox 98 98 98 99 O2 Delivery Room Air Room Air Room Air Room Air 01/31/19 01/31/19 01/31/19 01/31/19 12:30 12:45 13:00 13:15 Pulse 94 90 90 103 Resp 18 18 18 18 B/P (MAP) 112/66 (81) 111/70 (84) 109/64 (79) 114/76 (89) Pulse Ox 97 97 98 98 O2 Delivery Room Air Room Air Room Air Room Air 01/31/19 01/31/19 01/31/19 01/31/19 13:30 13:45 14:00 14:15 Temp 98.5 Pulse 110 113 97 95 Resp 18 18 18 18 B/P (MAP) 144/72 (96) 115/74 (88) 110/71 (84) 133/60 (84) Pulse Ox 98 99 100 99 O2 Delivery Room Air Room Air Room Air Room Air 01/31/19 01/31/19 01/31/19 01/31/19 14:30 14:45 15:00 15:30 Temp 98.4 Pulse 98 83 78 108 Resp 18 18 18 18 B/P (MAP) 118/59 (78) 115/74 (88) 122/61 (81) 173/125 (141) Pulse Ox 100 100 100 100 O2 Delivery Room Air Non Rebreather Non Rebreather Non Rebreather O2 Flow Rate 10.00 10.00 10.00 01/31/19 01/31/19 01/31/19 01/31/19 16:21 16:30 16:40 16:50 Temp 99.6 Resp 20 20 20 20 Pulse Ox 98 97 99 98 O2 Delivery Room Air Room Air Room Air Room Air 01/31/19 01/31/19 01/31/19 01/31/19 17:00 17:10 17:15 19:18 Temp 99.4 Resp 16 20 20 Pulse Ox 98 98 99 O2 Delivery Room Air Room Air Room Air Room Air 01/31/19 02/01/19 02/01/19 02/01/19 20:00 00:00 04:30 09:51 Temp 99.2 97.4 98.7 98.1 Pulse 98 101 94 98 Resp 20 18 18 18 B/P (MAP) 128/74 (92) 143/70 (94) 132/79 (96) 129/83 (98) Pulse Ox 98 98 O2 Delivery Room Air Room Air Room Air Room Air 02/01/19 02/01/19 02/01/19 02/02/19 12:43 16:50 22:06 03:25 Temp 97.8 98.1 97.7 98.4 Pulse 72 80 72 78 Resp 18 18 18 18 B/P (MAP) 139/83 (101) 127/82 (97) 124/79 (94) 127/78 (94) Pulse Ox 100 100 100 99 O2 Delivery Room Air Room Air Room Air Room Air Discharge Home Medications Reviewed and agree with Discharge Medication list on patient's Discharge Instruction sheet Instructions to Patient/Family Please see electronic discharge instructions given to patient. Clinical Quality Measures DVT/VTE Risk/Contraindication: Risk Factor Score Per Nursin RFS Level Per Nursing on Admit: 1=Low/No VTE PPX NATE FALL DO Feb 02, 2019 10:28
[2019-02-02] MEDS: DOCUSATE SODIUM 100 MG (COLACE) CAP PO SCH (10:30)
--- NOTE | 2019-02-02 10:30 | NUR ---
MEDS GIVEN PO; SEE EMAR FOR FURTHER. INITIAL SHIFT ASSESSMENT COMPLETED; SEE INTERVENTION FOR FURTHER. S/O AT THE BEDSIDE. NO NEEDS VOICED. CALL LIGHT WITHIN REACH.
--- NOTE | 2019-02-02 11:25 | NUR ---
DISCHARGE PAPERS PROVIDED AND REVIEWED WITH PT, PT VERBALIZES UNDERSTANDING AND DENIES ANY QUESTIONS OR NEEDS AT THIS TIME. PAPER SIGNED. FOLLOW UP APPOINTMENT CARDS AND RX'S ALSO PROVIDED AND PLACED INTO DISCHARGE FOLDER.
--- NOTE | 2019-02-02 12:15 | NUR ---
PT DISCHARGED FROM [facility] TO PERSONAL [facility] AMBULATORY IN STABLE CONDITION ACC BY PT'S MOTHER, S/O AND .
== END 2019-02-02 12:15 | disposition home or self-care (01) | DRG 787 ==
LOC: LDRP 19:55
PROVIDERS: ADMIT Obstetrics & Gynecology; ATTEND Obstetrics & Gynecology
PROC: 10D00Z1 Extraction of Products of Conception, Low, Open Approach (ICD-10-PCS; principal; 2019-01-30)
DX: O14.93 Unspecified pre-eclampsia, third trimester (principal); O90.81 Anemia of the puerperium; D62 Acute posthemorrhagic anemia; O76 Abnormality in fetal heart rate and rhythm complicating labor and delivery; O66.40 Failed trial of labor, unspecified; O69.81X0 Labor and delivery complicated by cord around neck, without compression, not applicable or unspecified; O99.820 Streptococcus B carrier state complicating pregnancy; O99.613 Diseases of the digestive system complicating pregnancy, third trimester; K21.9 Gastro-esophageal reflux disease without esophagitis; O99.213 Obesity complicating pregnancy, third trimester; E66.9 Obesity, unspecified; Z3A.39 39 weeks gestation of pregnancy; Z37.0 Single live birth
CPT/HCPCS: 36415; 80053; 81000; 83615; 84550; 85025; 86850; 86900; 86901; 94664

== ENCOUNTER 2021-05-30 11:03 | Outpatient (CLI) | payer BC ==
[~2021-05-30] VITALS: Ht 152.4 cm; Wt 64.5 kg
[2021-05-30 11:00] VITALS: BP 95/80
[~2021-05-30 11:03] MED LIST changes: +ACET-78 PO; +DOCU100C37 PO; +IBUP-844 PO; +OXC5T PO
[2021-05-30] MEDS ORDERED: diphenhydrAMINE 50 MG/ML INJ (BENADRYL) IV PRN (11:15)
[2021-05-30] MEDS ORDERED: EPINEPHrine INJECTION 1 MG/ML AMP IM PRN (11:15)
[2021-05-30] MEDS ORDERED: ONDANSETRON 4 MG/2 ML (SDV) Z0FRAN IV PRN (11:30)
[2021-05-30] MEDS ORDERED: ACETAMINOPHEN 500 MG TAB (TYLENOL) PO PRN (11:30)
[2021-05-30] MEDS ORDERED: CASIRIVIMAB/IMDEVIMAB 1,200 MG in NS (IVPB) 250 ML IV ONE (11:30)
== END 2021-05-30 11:27 | disposition home or self-care (01) ==
LOC: INFUSION 11:03
PROVIDERS: ATTEND Nurse Practitioner Family
DX: Z23 Encounter for immunization (principal); U07.1 COVID-19

== ENCOUNTER → 2021-09-04 | Outpatient (CLI) | payer BC ==
--- NOTE | 2021-09-04 12:56 | Diagnostic Imaging Report ---
INDICATION: survey. TECHNIQUE: Multiple real-time grayscale images were obtained over the gravid uterus. COMPARISON: None. FINDINGS: There is a single live fetus in a variable presentation. heart rate was recorded at 155 BPM. Placenta is posterior. Amniotic fluid volume is normal. Cervical length is 6.9 cm. survey shows kidneys, bladder and stomach to be unremarkable. brain is unremarkable. There is a four-chamber heart. There is a three-vessel cord with normal insertion. spine is unremarkable. facial anatomy is somewhat limited due to position. Biometrical measurements are as follows: Biparietal 4.62 cm, age 20 weeks 0 days. Head circumference 17.41 cm, age 20 weeks 0 days. Abdominal circumference 14.31 cm, age 19 weeks 5 days. Femur length 3.17 cm, age 19 weeks 6 days. Sonographic estimate age: 20 weeks 0 days. Sonographic estimated date of delivery: 01/22/2022. Estimated Weight: 312 gm (+/- 46 gm). LMP percentile: 33%. heart rate: 155 beats per minute. number: 1 of 1. IMPRESSION: Single live IUP of 20 weeks 0 days gestational age. Estimated date of confinement sonographically is 01/22/2022. Dictated by: Dictated on workstation # [id number]
== END ==
LOC: RAD 10:45
PROVIDERS: ATTEND Nurse Practitioner Women's Health
DX: Z34.02 Encounter for supervision of normal first pregnancy, second trimester (principal); Z3A.20 20 weeks gestation of pregnancy
CPT/HCPCS: 76805

== ENCOUNTER → 2021-12-03 | Outpatient (CLI) | payer BC ==
--- NOTE | 2021-12-03 11:25 | Diagnostic Imaging Report ---
INDICATION: survey. TECHNIQUE: Multiple Real-time grayscale images were obtained over the gravid uterus. COMPARISON: 09/04/2021. FINDINGS: There is a single live intrauterine fetus which is in vertex presentation. The amniotic fluid index is 13.3. The placenta is posterior and not low. No abruption. heart rate of 135 BPM. Cervical length is 7.9 cm. Facial anatomy was evaluated and appears normal and complete. Current biometric measurements are within the 50th percentile. Biometrical measurements are as follows: Biparietal 8.39 cm, age 33 weeks 6 days. Head circumference 30.93 cm, age 34 weeks 4 days. Abdominal circumference 29.55 cm, age 33 weeks 4 days. Femur length 6.12 cm, age 31 weeks 6 days. Sonographic estimate age: 33 weeks 4 days. Sonographic estimated date of delivery: 01/17/2022. Estimated Weight: 2131 gm (+/- 311 gm). LMP percentile: 50%. heart rate: 135 beats per minute. number: 1 of 1. IMPRESSION: There is a single live intrauterine fetus at the 50th percentile for 33 weeks 4 days. anatomical survey was completed with the face well visualized today. Dictated by: Dictated on workstation # [id number]
== END ==
LOC: RAD 10:00
PROVIDERS: ATTEND Obstetrics & Gynecology
DX: Z34.83 Encounter for supervision of other normal pregnancy, third trimester (principal)
CPT/HCPCS: 76805

== ENCOUNTER → 2022-01-08 | Outpatient (CLI) | payer BC ==
[~2022-01-08] VITALS: Ht 152.4 cm; Wt 81.4 kg
== END ==
LOC: PREOP 05:28
PROVIDERS: ATTEND Obstetrics & Gynecology
DX: Z01.818 Encounter for other preprocedural examination (principal)

== ENCOUNTER 2022-01-15 06:29 | Inpatient (IN) | payer BC ==
[~2022-01-15] VITALS: Ht 152.4 cm; Wt 83.0 kg
[2022-01-15] VITALS (11 sets, daily range): BP systolic 106–141; BP diastolic 64–84
[2022-01-15 06:41] LABS: BILIRUBIN,URINE NEGATIVE (NEGATIVE); CLARITY,URINE CLOUDY; COLOR,URINE YELLOW; GLUCOSE, URINE (UA) NEGATIVE (NEGATIVE); KETONES,URINE TRACE (NEGATIVE); LEUKOCYTE ESTERASE ,URINE NEGATIVE (NEGATIVE); NITRITE,URINE NEGATIVE (NEGATIVE); PH,URINE 6.5 (5-9); PROTEIN,URINE TRACE (NEGATIVE)
[2022-01-15] MEDS ORDERED: ceFAZolin 2 GM IV Premixed 50 ML IV ONE (06:45)
[2022-01-15] MEDS ORDERED: METOCLOPRAMIDE INJ 10 MG/2 ML (REGLAN) IV ONE (06:45)
[2022-01-15] MEDS ORDERED: CATHETER FLUSH 10 ML SYR IV PRN (06:45)
[2022-01-15] MEDS ORDERED: LACTATED RINGERS 1,000 ML IV PRN ×2 (06:45)
[2022-01-15] MEDS ORDERED: CITRIC ACID/SOB CIT (BICITRA) 30 ML UDC PO ONE (06:45)
[2022-01-15 06:50] LABS: AMORPHOUS SEDIMENT,UR FEW AMOR URATES /LPF; BACTERIA,URINE FEW /HPF; RBC,URINE RARE /HPF; WBC,URINE RARE /HPF
[2022-01-15] MEDS ORDERED: FAMOTIDINE 20MG/2ML IV (PEPCID) IVP ONE (07:00)
[2022-01-15 07:13] LABS: BASOPHILS # (AUTO) 0.1 10^3/uL (0.0-0.1); BASOPHILS % (AUTO) 0 % (0-10); EOSINOPHILS % (AUTO) 0 % (0-10); HEMATOCRIT 39 % (35-52); HEMOGLOBIN 12.2 g/dL (11.5-16.0); LYMPHOCYTES # (AUTO) 2.6 10^3/uL (1.0-4.0); LYMPHOCYTES % (AUTO) 22 % (12-44); MEAN CORPUSCULAR HEMOGLOBIN 26 pg (25-34); MEAN CORPUSCULAR HGB CONC 32 g/dL (32-36); MEAN CORPUSCULAR VOLUME 83 fL (80-99); MONOCYTES # (AUTO) 0.9 10^3/uL (0.0-1.0); MONOCYTES % (AUTO) 7 % (0-12); NEUTROPHILS # (AUTO) 8.2 10^3/uL (1.8-7.8); NEUTROPHILS % (AUTO) 70 % (42-75); PLATELET COUNT 274 10^3/uL (130-400); WHITE BLOOD COUNT 11.8 10^3/uL (4.3-11.0)
--- NOTE | 2022-01-15 07:21 | History & Physical-OB ---
OB - Chief Complaint & HPI Date/Time Date of Admission: Date of Admission: Jan 15, 2022 at 06:29 Date seen by a Provider: Jan 15, 2022 Time Seen by a Provider: 07:10 Chief Complaint/History OB-Reason for Admission/Chief: Section Hx : 2 Hx Para: 1 Expected Date of Delivery: Jan 22, 2022 Gestational Age in Weeks: 39 Indication for : desires repeat Admission Nurse Assessment Rev: Yes History of Labs B+/- HbSAg- HIV - GBS - Rub I Allergies and Home Medications Allergies Coded Allergies: No Known Drug Allergies (Unverified , 08/26/18) Patient Home Medication List Home Medication List Reviewed: Yes [id number]/FA/Omega3/Dha/Fish Oil ( Gummies) 1 Each Tab.chew, 4 EACH PO DAILY, (Reported) Entered as Reported by: MOE CALDERÓN on 08/26/18 1344 Last Action: Reviewed Discontinued Medications Acetaminophen (Acetaminophen) 500 Mg Tablet, 1,000 MG PO Q8HR Discontinued Reason: No Longer Taking Prescribed by: NATE FALL on 02/02/19 09 Dexlansoprazole (Dexilant) 30 Mg Cap., 30 MG PO DAILY, (Reported) Discontinued Reason: No Longer Taking Entered as Reported by: MOE CALDERÓN on 08/26/18 1346 Docusate Sodium (Docusate Sodium) 100 Mg Capsule, 100 MG PO BID Discontinued Reason: No Longer Taking Prescribed by: NATE FALL on 02/02/19952 Ibuprofen (Ibu) 600 Mg Tablet, 600 MG PO Q6H Discontinued Reason: No Longer Taking Prescribed by: NATE FALL on 02/02/19952 Oxycodone Hcl (Oxycodone IR) 5 Mg Tab, 5 MG PO Q4HR PRN for PAIN-SEVERE Discontinued Reason: No Longer Taking Prescribed by: NATE FALL on 02/02/19952 OB - History Hx of Present Care: Yes Ultrasounds: Normal mid trimester US Obstetrical Complications: None Medical Complications: None Information Induced Hypertension: No Maternal Gestational Diabetes: No Hemorrhage: No Obstetrical History Hx : 2 Hx Para: 1 Hx # Term Pregnancies: 1 Hx # Pregnancies: 0 Number of Living Children: 1 Hx Multiple Gestation: No Hx Ectopic : No Hx Stillbirth: No Hx Complication: No Hx Induced Hypertens: No Hx Maternal Gestational Diabet: No Hx Hemorrhage: No Delivery History Hx Dystocia: No Hx Forceps Assisted Delivery: No Hx Vacuum Extraction Assisted: No Hx Placenta Abnormality: No Hx Distress: No Hx Large For Gestational Age I: No Hx Small for Gestational Age I: No Hx Section: Yes Hx Vaginal Delivery Post C-Sec: No Hx Blood Disorders: No Adverse Rxn to Tranfusion: No Patient Past Medical History demylination of brain Social History/Family History Alcohol Use: Denies Use Recreational Drug Use: No Smoking Cessation: Never smoker 2nd Hand Smoke Exposure: No Immunizations Influenza Vaccine Up-to-Date: Yes; Up-to-Date Rubella: immune RPR/VDRL: Negative GBS Status: Negative HBsAG: Negative OB - Admission Exam Physical Exam Vitals: Vital Signs 01/15/22 01/15/22 06:57 07:00 Temp 36.0 Pulse 96 Resp 18 B/P (MAP) 141/81 (101) Pulse Ox 100 O2 Delivery Room Air HEENT: NCAT Heart: Rhythm Normal Lungs: Clear Abdomen: Gravid Extremities: Normal Reflexes: Normal Cervical Dilatation: other (NC) Labs Laboratory Tests Test 01/15/22 06:20 01/15/22 06:56 Range/Units Urine Color YELLOW Urine Clarity CLOUDY Urine pH 6.5 5-9 Urine Specific [place] 1.025 H 1.016-1.022 Urine Protein TRACE H NEGATIVE Urine Glucose (UA) NEGATIVE NEGATIVE Urine Ketones TRACE H NEGATIVE Urine Nitrite NEGATIVE NEGATIVE Urine Bilirubin NEGATIVE NEGATIVE Urine Urobilinogen 0.2 < = 1.0 MG/DL Urine Leukocyte Esterase NEGATIVE NEGATIVE Urine RBC (Auto) NEGATIVE NEGATIVE Urine RBC RARE /HPF Urine WBC RARE /HPF Urine Squamous Epithelial Cells 10-25 H /HPF Urine Crystals PRESENT H /LPF Urine Amorphous Sediment FEW KATJA URATES H /LPF Urine Bacteria FEW H /HPF Urine Casts NONE /LPF Urine Mucus SMALL H /LPF Urine Culture Indicated NO White Blood Count 11.8 H 4.3-11.0 10^3/uL Red Blood Count 4.68 3.80-5.11 10^6/uL Hemoglobin 12.2 11.5-16.0 g/dL Hematocrit 39 35-52 % Mean Corpuscular Volume 83 80-99 fL Mean Corpuscular Hemoglobin 26 25-34 pg Mean Corpuscular Hemoglobin Concent 32 32-36 g/dL Red Cell Distribution Width 13.5 10.0-14.5 % Platelet Count 274 130-400 10^3/uL Mean Platelet Volume 11.0 9.0-12.2 fL Immature Granulocyte % (Auto) 1 % Neutrophils (%) (Auto) 70 42-75 % Lymphocytes (%) (Auto) 22 12-44 % Monocytes (%) (Auto) 7 0-12 % Eosinophils (%) (Auto) 0 0-10 % Basophils (%) (Auto) 0 0-10 % Neutrophils # (Auto) 8.2 H 1.8-7.8 10^3/uL Lymphocytes # (Auto) 2.6 1.0-4.0 10^3/uL Monocytes # (Auto) 0.9 0.0-1.0 10^3/uL Eosinophils # (Auto) 0.0 0.0-0.3 10^3/uL Basophils # (Auto) 0.1 0.0-0.1 10^3/uL Immature Granulocyte # (Auto) 0.1 0.0-0.1 10^3/uL OB - Assessment/Plan/Diagnosis Assessment Assessment: section Admission Dx Previous section Plan repeat section. Risk of bleeding infection, injury to bowel, bladder and ureter discussed with patient. Injury to fetus. complications with anesthesia, DVT/PE Prophylactic antibiotics and SCDs. Admission Status: Inpatient Order (span 2 midnights) Reason for Inpatient Admission: section NATE FALL DO Jan 15, 2022 07:21
[2022-01-15] MEDS ORDERED: fentaNYL INJ 100 MCG/2 ML AMP ONE (07:26)
[2022-01-15] MEDS ORDERED: KETAMINE 50 MG/5 ML SYRINGE ONE (07:30)
[2022-01-15] MEDS: KETOROLAC 30 MG/ML VIAL IV SCH ×4 (07:45→23:29)
[2022-01-15] MEDS ORDERED: KETAMINE HCL 100 MG/ML 5 ML VIAL ONE (07:47)
[2022-01-15] MEDS ORDERED: OXYTOCIN PRE-MIX DRIP 500 ML IV ONE (07:56)
[2022-01-15] MEDS ORDERED: PHENYLEPHRINE 100 MCG/ML 10 ML (ANESTHESIA) SYR ONE (08:03)
[2022-01-15] MEDS ORDERED: KETOROLAC 30 MG/ML VIAL ONE (08:03)
--- NOTE | 2022-01-15 08:20 | Cesarean Section Operative ---
Procedure Procedure Note Pre-operative Diagnosis: Angie Ferreira is a 31 /Para 2 / 1, Gestational Age 39 weeks with history of previous section presenting for repeat section Post-operative Diagnosis: same Procedure: Repeat low transverse section Physician: NATE FALL Estimated blood loss: 500 mL Disposition: stable Findings: Viable male , Apgars 7/8, weight 8#15 ounces, intact placenta, 3vc, normal appearing uterus, tubes, and ovaries. Indications:Angie Ferreira is a 31 /Para 2 / 1,Gestational Age 39 weeks with history of previous section presenting for repeat section Procedure Details: The patient was seen in pre-op and the procedure was discussed with the patient in full, including the risks, benefits, and alternatives. All questions were answered. The patient was taken to the operating room and a time out was performed, verifying patient and procedure. After spinal anesthesia was placed by our anesthesia colleagues, the patient was placed in the dorsal supine with leftward tilt for uterine displacement.~ Her abdomen was then prepped and draped in the typical sterile fashion. A Pfannenstiel skin incision was made using a scalpel and carried down through the underlying fascia. The fascia was incised in the midline and tented up using Humble clamps. On both the inferior and superior fascia side the rectus muscle was dissected off bluntly and sharply using Adorno scissors. The peritoneum was identified and entered bluntly in the midline. This was then stretched laterally using manual strength. After entering the abdominal cavity and confirming lack of intraperitoneal adhesions, a large Kem retractor was placed and the lower uterine segment was visualized. A scalpel was utilized to make a low transverse uterine incision. Amniotomy was performed with an Allis clamp with return of clear fluid. The 's head was grasped and brought to the level of the incision. Fundal pressure was applied and infant was delivered without difficulty. Mouth and nares were suctioned with bulb suction. After the umbilical cord was clamped and cut, the was handed off to the pediatric staff. A sample of cord blood was then obtained. The placenta was delivered intact via uterine massage. The uterus was cleared of all clots and debris. The uterine incision was closed using 0 Vicryl in a running locked fashion. A second imbricated layer was placed using 0 Vicryl in a running fashion as well. The bilateral tubes and ovaries appeared normal. The uterus abdominal gutters were cleared of all clots and debris. A final check of the uterine incision showed it to be hemostatic. The peritoneum was closed using 3-0 Vicryl in a running fashion. The fascia was closed with 0 PDS in a running fashion. The subcutaneous space was hemostatic, and irrigated. The subcutaneous space was closed with 0 plain in several single interrupted stitches. The skin was then closed using 4-0 Biosyn in a running subcuticular fashion. The skin edges were reapproximated together and were hemostatic. A pressure dressing was applied. All sponge, lap and needle counts were correct at the end of the pro cedure per nursing. Vitals - Labs Vital Signs - I&O Vital Signs Date Time Temp Pulse Resp B/P (MAP) Pulse Ox O2 Delivery O2 Flow Rate FiO2 01/15/22 07:50 135/83 (100) 01/15/22 07:00 36.0 96 18 100 Room Air 01/15/22 06:57 36.0 96 18 141/81 (101) 100 Room Air Labs Laboratory Tests 01/15/22 06:20: Urine Color YELLOW, Urine Clarity CLOUDY, Urine pH 6.5, Urine Specific [place] 1.025H, Urine Protein TRACEH, Urine Glucose (UA) NEGATIVE, Urine Ketones TRACEH, Urine Nitrite NEGATIVE, Urine Bilirubin NEGATIVE, Urine Urobilinogen 0.2, Urine Leukocyte Esterase NEGATIVE, Urine RBC (Auto) NEGATIVE, Urine RBC RARE, Urine WBC RARE, Urine Squamous Epithelial Cells 10-25H, Urine Crystals PRESENTH, Urine Amorphous Sediment FEW KATJA URATESH, Urine Bacteria FEWH, Urine Casts NONE, Urine Mucus SMALLH, Urine Culture Indicated NO 01/15/22 06:56: White Blood Count 11.8H, Red Blood Count 4.68, Hemoglobin 12.2, Hematocrit 39, Mean Corpuscular Volume 83, Mean Corpuscular Hemoglobin 26, Mean Corpuscular Hemoglobin Concent 32, Red Cell Distribution Width 13.5, Platelet Count 274, Mean Platelet Volume 11.0, Immature Granulocyte % (Auto) 1, Neutrophils (%) (Auto) 70, Lymphocytes (%) (Auto) 22, Monocytes (%) (Auto) 7, Eosinophils (%) (Auto) 0, Basophils (%) (Auto) 0, Neutrophils # (Auto) 8.2H, Lymphocytes # (Auto) 2.6, Monocytes # (Auto) 0.9, Eosinophils # (Auto) 0.0, Basophils # (Auto) 0.1, Immature Granulocyte # (Auto) 0.1 NATE FALL DO Jan 15, 2022 08:20
[2022-01-15] MEDS ORDERED: morphine INJ 4 MG/ML 1 ML (VIAL/SYRINGE) IV PRN (08:30)
[2022-01-15] MEDS ORDERED: MEASLES,MUMPS,RUBELLA 1 EA INJ SC SCH (08:30)
[2022-01-15] MEDS ORDERED: OXYTOCIN PRE-MIX DRIP 500 ML IV SCH (08:30)
[2022-01-15] MEDS ORDERED: NALOXONE 0.4 MG/ML 1 ML (NARCAN) VIAL IV PRN (08:30)
[2022-01-15] MEDS ORDERED: TETANUS,DIPTH,PERTUSS P/F (BOOSTRIX) 0.5 ML VIAL IM SCH (08:30)
[2022-01-15] MEDS ORDERED: BUPIVACAINE 0.5% 30 ML (SENSORCAINE) VIAL ONE (09:00)
[2022-01-15] MEDS: DOCUSATE SODIUM 100 MG (COLACE) CAP PO SCH ×2 (09:00→20:51)
[2022-01-15] MEDS: ACETAMINOPHEN 500 MG TAB (TYLENOL) PO SCH ×2 (13:30→20:56)
[2022-01-15] MEDS: CATHETER FLUSH 10 ML SYR IV SCH ×3 (13:30→23:30)
[2022-01-16 03:30] VITALS: BP 130/78
[2022-01-16] MEDS ORDERED: IBUPROFEN 600 MG (MOTRIN) TAB PO ONE (05:46)
[2022-01-16] MEDS: IBUPROFEN 600 MG (MOTRIN) TAB PO SCH ×2 (05:47→11:42)
[2022-01-16] MEDS: ACETAMINOPHEN 500 MG TAB (TYLENOL) PO SCH ×2 (05:47→13:52)
[2022-01-16 06:02] LABS: BASOPHILS # (AUTO) 0.1 10^3/uL (0.0-0.1); BASOPHILS % (AUTO) 1 % (0-10); EOSINOPHILS # (AUTO) 0.1 10^3/uL (0.0-0.3); EOSINOPHILS % (AUTO) 1 % (0-10); HEMATOCRIT 36 % (35-52); HEMOGLOBIN 11.6 g/dL (11.5-16.0); LYMPHOCYTES # (AUTO) 3.2 10^3/uL (1.0-4.0); LYMPHOCYTES % (AUTO) 27 % (12-44); MEAN CORPUSCULAR HEMOGLOBIN 26 pg (25-34); MEAN CORPUSCULAR HGB CONC 32 g/dL (32-36); MEAN CORPUSCULAR VOLUME 82 fL (80-99); MEAN PLATELET VOLUME 10.9 fL (9.0-12.2); MONOCYTES % (AUTO) 8 % (0-12); NEUTROPHILS # (AUTO) 7.3 10^3/uL (1.8-7.8); NEUTROPHILS % (AUTO) 63 % (42-75); PLATELET COUNT 259 10^3/uL (130-400); WHITE BLOOD COUNT 11.7 10^3/uL (4.3-11.0)
--- NOTE | 2022-01-16 07:25 | Postpartum Progress Note ---
Post Op Post-operative Day #1 s/p RLTCS Subjective: Patient is without complaints. Ambulating, voiding after yeung removed. Tolerating a regular diet without nausea or vomiting. Normal lochia. Pain is well controlled with oral pain medications. Passing flatus. breast feeding. doing very well. Requesting discharge today Objective: Laboratory Tests Test 01/16/22 05:30 Range/Units White Blood Count 11.7 H 4.3-11.0 10^3/uL Red Blood Count 4.42 3.80-5.11 10^6/uL Hemoglobin 11.6 11.5-16.0 g/dL Hematocrit 36 35-52 % Mean Corpuscular Volume 82 80-99 fL Mean Corpuscular Hemoglobin 26 25-34 pg Mean Corpuscular Hemoglobin Concent 32 32-36 g/dL Red Cell Distribution Width 13.6 10.0-14.5 % Platelet Count 259 130-400 10^3/uL Mean Platelet Volume 10.9 9.0-12.2 fL Immature Granulocyte % (Auto) 1 % Neutrophils (%) (Auto) 63 42-75 % Lymphocytes (%) (Auto) 27 12-44 % Monocytes (%) (Auto) 8 0-12 % Eosinophils (%) (Auto) 1 0-10 % Basophils (%) (Auto) 1 0-10 % Neutrophils # (Auto) 7.3 1.8-7.8 10^3/uL Lymphocytes # (Auto) 3.2 1.0-4.0 10^3/uL Monocytes # (Auto) 1.0 0.0-1.0 10^3/uL Eosinophils # (Auto) 0.1 0.0-0.3 10^3/uL Basophils # (Auto) 0.1 0.0-0.1 10^3/uL Immature Granulocyte # (Auto) 0.1 0.0-0.1 10^3/uL Vital Signs 01/16/22 03:30 Temp 36.6 Pulse 86 Resp 18 B/P (MAP) 130/78 (95) Pulse Ox 98 O2 Delivery Room Air Physical Exam: General - Alert and oriented, no apparent distress Abdomen - Soft, appropriately tender to palpation, non-distended, fundus firm at umbilicus Incision - clean, dry and intact; no erythema or induration, no drainage Extremities - no edema, negative Dania's bilaterally Assessment: 1. post-operative day # 1, status post RLTCS. Recovering well, hemodynamically stable Plan: Routine post-operative care. Encourage breast feeding. Encourage ambulation. VTE prophylaxis: SCDs. Ferrous sulfate supplementation. Plan for discharge today if baby is discharged. Vitals - Labs Vital Signs - I&O Vital Signs Date Time Temp Pulse Resp B/P (MAP) Pulse Ox O2 Delivery O2 Flow Rate FiO2 01/16/22 03:30 36.6 86 18 130/78 (95) 98 Room Air 01/15/22 23:30 36.5 82 18 136/71 (92) 98 Room Air 01/15/22 20:56 36.6 95 18 129/75 (93) 98 Room Air 01/15/22 17:24 36.5 76 18 130/66 (87) 97 Room Air 01/15/22 12:00 36.9 101 18 129/64 (85) 97 01/15/22 10:22 Room Air 01/15/22 09:21 36.7 16 112/84 (93) 100 Room Air 01/15/22 09:06 36.7 16 121/73 (89) 100 Room Air 01/15/22 08:51 36.0 14 106/76 (86) 99 Room Air 01/15/22 08:36 36.0 18 107/84 (92) 99 Room Air 01/15/22 07:50 135/83 (100) I & O 01/16/22 07:00 Intake Total 5650 ml Output Total 3330 ml Balance 2320 ml Labs Laboratory Tests 01/16/22 05:30: White Blood Count 11.7H, Red Blood Count 4.42, Hemoglobin 11.6, Hematocrit 36, Mean Corpuscular Volume 82, Mean Corpuscular Hemoglobin 26, Mean Corpuscular Hemoglobin Concent 32, Red Cell Distribution Width 13.6, Platelet Count 259, Mean Platelet Volume 10.9, Immature Granulocyte % (Auto) 1, Neutrophils (%) (Auto) 63, Lymphocytes (%) (Auto) 27, Monocytes (%) (Auto) 8, Eosinophils (%) (Auto) 1, Basophils (%) (Auto) 1, Neutrophils # (Auto) 7.3, Lymphocytes # (Auto) 3.2, Monocytes # (Auto) 1.0, Eosinophils # (Auto) 0.1, Basophils # (Auto) 0.1, Immature Granulocyte # (Auto) 0.1 NATE FALL DO Jan 16, 2022 07:25
[2022-01-16 08:09] VITALS: BP 125/76
[2022-01-16] MEDS: DOCUSATE SODIUM 100 MG (COLACE) CAP PO SCH (08:19)
[2022-01-16] MEDS ORDERED: DOCU100C37 PO (09:45)
[2022-01-16] MEDS ORDERED: IBUP-844 PO (09:45)
[2022-01-16] MEDS ORDERED: ACET-93 PO (09:45)
--- NOTE | 2022-01-16 09:47 | Discharge Inst-Women's Service ---
Discharge Inst-Women's Serv Depart Medication/Instructions New, Converted or Re-Newed RX: Transmitted to Pharmacy Final Diagnosis previous section Problems Reviewed?: Yes Consults/Follow Up Additional Follow Up: Yes (1 week for incision check/6 week pp and liletta insertion) Activity Activity: Activity as Tolerated Driving Instructions: No Driving for 1 Week NO SMOKING: NO SMOKING Nothing Inside Vagina: No Douching, No [place], No Tampons Diet Discharge Diet: No Restrictions Symptoms to Report to : Swelling Increased, Bleeding Excessive, Pain Increased, Fever Over 101 Degrees F, Vaginal Bleeding Increase, Cramps in Feet or Legs, Vaginal Discharge Foul For Any Problems or Questions: Contact Your Physician Skin/Wound Care Infection Signs and Symptoms: Increased Redness, Foul Odor of Wound, Increased Drainage, Skin Itchy or Has a Rash, Increased Swelling, Temperature Above 101 F Operative Area Clean and Dry: Keep Incision Clean/Dry Stitches/Alicia/Dermabond: Dermabond Bathing Instructions: NATE Dozier DO Jan 16, 2022 09:47
[2022-01-16 14:15] VITALS: BP 125/76
--- NOTE | 2022-01-16 14:20 | Anesthesia-Regional Post-Op ---
Regional Patient Condition Mental Status: Alert, Oriented x3 Circulation: Same as Pre-Op Headache: Absent Sensation: Full Recovery Motor Block: Absent Post Op Complications Complications None Follow Up Care/Instructions Patient Instructions None needed. Anesthesia/Patient Condition Patient is doing well, no complaints, stable vital signs, no apparent adverse anesthesia problems. YUMIKO HACKETT DO Jan 16, 2022 14:20
== END 2022-01-16 15:05 | disposition home or self-care (01) | DRG 788 ==
LOC: LDRP 06:29
PROVIDERS: ADMIT Obstetrics & Gynecology; ATTEND Obstetrics & Gynecology
PROC: 10D00Z1 Extraction of Products of Conception, Low, Open Approach (ICD-10-PCS; principal; 2022-01-15 08:00)
DX: O34.211 Maternal care for low transverse scar from previous cesarean delivery (principal); Z3A.39 39 weeks gestation of pregnancy; Z37.0 Single live birth
CPT/HCPCS: 36415; 81000; 85025; 86850; 86900; 86901; 94664

== ENCOUNTER → 2022-04-13 | Outpatient (CLI) | payer BC ==
[~2022-04-13] MED LIST changes: +ACET-93 PO
--- NOTE | 2022-04-13 11:06 | Diagnostic Imaging Report ---
PROCEDURE: Pelvic comp/transvaginal sonogram. TECHNIQUE: Complete transabdominal and transvaginal pelvic ultrasound was performed. In addition, limited pelvic Doppler was performed. INDICATION: Evaluate IUD. FINDINGS: Uterus is anteverted measuring 6.8 x 3.5 x 5.5 cm. Endometrium is 4 mm in thickness. The IUD appears to be appropriately centered within the endometrial canal. No myometrial mass is detected. Right ovary measures 3.3 x 2.2 x 3.0 cm, and the left ovary measures 3.3 x 2.1 x 3.1 cm. Both ovaries contain small follicles. There is blood flow to both ovaries. No adnexal mass or free fluid is detected. IMPRESSION: 1. The IUD is appropriately centered within the endometrial canal. 2. Unremarkable transabdominal and transvaginal pelvic ultrasound. Dictated by: Dictated on workstation # [id number]
== END ==
LOC: RAD 09:50
PROVIDERS: ATTEND Obstetrics & Gynecology
DX: Z30.431 Encounter for routine checking of intrauterine contraceptive device (principal)
CPT/HCPCS: 76830; 76856

== ENCOUNTER → 2022-08-17 | Outpatient (CLI) | payer BC ==
--- NOTE | 2022-08-17 09:36 | Diagnostic Imaging Report ---
INDICATION: Right axillary mass. TECHNIQUE: Sonographic interrogation of the right axilla was performed. FINDINGS: No sonographic abnormality is identified. No solid or cystic mass is detected. IMPRESSION: No sonographic abnormality is detected. ACR BI-RADS Category 1: Negative. Dictated by: Dictated on workstation # [id number]
== END ==
LOC: RAD 08:46
PROVIDERS: ATTEND Family Medicine
DX: R22.31 Localized swelling, mass and lump, right upper limb (principal)

== ENCOUNTER → 2022-09-02 | Outpatient (CLI) | payer BC ==
--- NOTE | 2022-09-02 14:08 | Diagnostic Imaging Report ---
INDICATION: Pain in the outer right breast. No prior studies are available for comparison. 2-D and 3-D bilateral diagnostic mammography was performed with CAD. Both breasts are heterogeneously dense, limiting the sensitivity of mammography. No discrete mass or malignant-appearing microcalcifications are seen. Axillae are unremarkable. IMPRESSION: No mammographic features suspicious for malignancy are identified. Even so, directed sonographic interrogation of the area of pain in the right breast is recommended and will be performed today. ACR BI-RADS Category 0: Incomplete. (Needs additional imaging evaluation). Result letter will be mailed to the patient. Note: At least 10% of breast cancer is not imaged by mammography. BI-RADS 0 Dictated by: Dictated on workstation # [id number]
--- NOTE | 2022-09-02 15:46 | Diagnostic Imaging Report ---
INDICATION: Pain in the outer right breast. Sonographic interrogation area of pain of the outer right breast was performed. No sonographic abnormality is detected. No solid or cystic masses detected. IMPRESSION: No sonographic abnormality is detected. ACR BI-RADS Category 1: Negative. Result letter will be mailed to the patient. Note: At least 10% of breast cancer is not imaged by mammography. BI-RADS Category 1 Dictated by: Dictated on workstation # [id number]
== END ==
LOC: RAD 12:53
PROVIDERS: ATTEND Family Medicine
DX: N64.4 Mastodynia (principal)
CPT/HCPCS: 76642; 77066; G0279; 77062